=== PATIENT | male | born 1960 | race Two or more races ===

== ENCOUNTER 2020-05-18 11:56 | Inpatient (IN) | payer MEDICAID ==
[~2020-05-18] VITALS: Ht 177.8 cm; Wt 117.0 kg
[2020-05-18] MEDS ORDERED: ACETAMINOPHEN 325MG TABLET ONE (12:30)
[2020-05-18] MEDS ORDERED: ACETAMINOPHEN 325MG TABLET PO ONE (12:30)
[2020-05-18] MEDS ORDERED: SODIUM CHLORIDE 0.9% 1,000 ML IV ONE (12:42)
[2020-05-18 13:27] LABS: HEMATOCRIT. 46.4 % (42.0-52.0); MEAN CORPUSCULAR HEMOGLOBIN 29.9 pg (28.0-32.0); MEAN CORPUSCULAR VOLUME 86.7 fL (80.0-94.0); MEAN PLATELET VOLUME 7.4 fl (7.4-10.4); PLATELET 198 x1000/uL (130-400); RED BLOOD CELL COUNT 5.35 mill/uL (4.7-6.1); RED CELL DISTRIBUTION WIDTH 15.3 % (11.6-14.6)
[2020-05-18 13:38] LABS: CHLORIDE 103 mEq/L (98-107)
[2020-05-18 14:03] LABS: ATYPICAL LYMPHOCYTES 1; PLATELET ESTIMATE NORMAL
[2020-05-18] MEDS ORDERED: AZITHROMYCIN 500 MG in DEXT 5% WATER 250 ML IV SCH (16:00)
[2020-05-18] MEDS ORDERED: ONDANSETRON HCL 4MG/2ML INJ IV PRN (16:15)
[2020-05-18] MEDS ORDERED: ACETAMINOPHEN 325MG TABLET PO PRN (16:15)
[2020-05-18] MEDS ORDERED: CLONIDINE 0.1MG TABLET PO PRN (16:15)
[2020-05-18] MEDS ORDERED: DIPHENHYDRAMINE 50MG/ML VIAL IV PRN (16:15)
[2020-05-18 16:36] LABS: D-DIMER 0.34 mg/L FEU (<0.50)
[2020-05-18 16:52] LABS: PHOSPHORUS 2.6 mg/dL (2.5-4.9)
[2020-05-18] MEDS: ENOXAPARIN 30MG/0.3ML SYR SUBCUT SCH (17:29)
[2020-05-18] MEDS ORDERED: CEFTRIAXONE 1 G PREMIX 50 ML IV SCH (17:30)
[2020-05-18 21:28] VITALS: BP 128/60
[2020-05-18 21:45] VITALS: BP 105/60
[2020-05-18 21:49] VITALS: BP 105/60
[2020-05-18] MEDS ORDERED: SIMV-43 PO (22:00)
[2020-05-18] MEDS ORDERED: LISI2.5T47 PO (22:00)
[2020-05-18] MEDS ORDERED: GLIP10TA10 PO (22:00)
[2020-05-18] MEDS ORDERED: IBUP-2029 PO (22:00)
[2020-05-18] MEDS ORDERED: ASPI-1497 PO (22:00)
[2020-05-18] MEDS ORDERED: DEXTROSE 50% WATER 50ML SYRINGE IV PRN (22:45)
[2020-05-19 00:05] VITALS: BP 98/58
[2020-05-19 04:00] VITALS: BP 95/63
[2020-05-19] MEDS: ENOXAPARIN 30MG/0.3ML SYR SUBCUT SCH ×2 (05:31→18:33)
[2020-05-19] MEDS: BLOOD SUGAR DIAGNOSTIC STRIP TEST SCH ×4 (05:41→20:52)
[2020-05-19 08:00] VITALS: BP 105/65
[2020-05-19] MEDS: INSULIN LISPRO 100 UNITS/ML SUBCUT SCH ×4 (08:02→20:52)
[2020-05-19 10:19] LABS: BASOPHILS % 0.1 % (0.0-2.0); HEMATOCRIT. 45.9 % (42.0-52.0); HEMOGLOBIN. 15.8 g/dL (14.0-18.0); MEAN CORPUSCULAR HEMOGLOBIN 29.8 pg (28.0-32.0); MEAN CORPUSCULAR VOLUME 86.5 fL (80.0-94.0); MEAN PLATELET VOLUME 7.4 fl (7.4-10.4); MONOCYTES % 9.3 % (2.0-8.0); NEUTROPHILS % 69.6 % (40.0-76.0); PLATELET 220 x1000/uL (130-400); RED BLOOD CELL COUNT 5.31 mill/uL (4.7-6.1); RED CELL DISTRIBUTION WIDTH 15.3 % (11.6-14.6)
[2020-05-19 10:24] LABS: CHLORIDE 105 mEq/L (98-107)
[2020-05-19 10:31] LABS: LDL CHOLESTEROL 33 mg/dL (5-100)
[2020-05-19 10:32] LABS: HDL CHOLESTEROL 27 mg/dL (40-59)
[2020-05-19 12:00] VITALS: BP 96/73
[2020-05-19 16:00] VITALS: BP 107/66
[2020-05-19] MEDS: CEFTRIAXONE 1 G PREMIX 50 ML IV SCH (16:21)
[2020-05-19 20:00] VITALS: BP 114/72
[2020-05-20 00:05] VITALS: BP 108/72
[2020-05-20 04:00] VITALS: BP 102/63
[2020-05-20] MEDS: ENOXAPARIN 30MG/0.3ML SYR SUBCUT SCH ×2 (05:41→18:51)
[2020-05-20] MEDS: BLOOD SUGAR DIAGNOSTIC STRIP TEST SCH ×4 (07:40→21:00)
[2020-05-20] MEDS: INSULIN LISPRO 100 UNITS/ML SUBCUT SCH ×4 (07:46→21:00)
[2020-05-20 08:00] VITALS: BP 105/72
[2020-05-20 12:00] VITALS: BP 108/68
[2020-05-20 12:09] LABS: BASOPHILS % 0.1 % (0.0-2.0); EOSINOPHILS % 0.1 % (0.0-5.0); HEMATOCRIT. 43.8 % (42.0-52.0); HEMOGLOBIN. 15.1 g/dL (14.0-18.0); LYMPHOCYTES % 14.1 % (20.0-50.0); MEAN CORPUSCULAR HEMOGLOBIN 29.8 pg (28.0-32.0); MEAN CORPUSCULAR VOLUME 86.3 fL (80.0-94.0); MEAN PLATELET VOLUME 7.4 fl (7.4-10.4); MONOCYTES % 7.4 % (2.0-8.0); NEUTROPHILS % 78.3 % (40.0-76.0); PLATELET 228 x1000/uL (130-400); RED BLOOD CELL COUNT 5.07 mill/uL (4.7-6.1); RED CELL DISTRIBUTION WIDTH 15.3 % (11.6-14.6)
[2020-05-20 12:30] LABS: CHLORIDE 108 mEq/L (98-107)
[2020-05-20 16:00] VITALS: BP 106/75
[2020-05-20] MEDS: CEFTRIAXONE 1 G PREMIX 50 ML IV SCH (16:24)
[2020-05-20 20:00] VITALS: BP 111/70
[2020-05-20] MEDS ORDERED: DEXAMETHASONE 4MG/ML 1ML VIAL IV SCH (21:00)
[2020-05-21] VITALS (7 sets, daily range): BP systolic 91–120; BP diastolic 55–75
[2020-05-21] MEDS: ENOXAPARIN 30MG/0.3ML SYR SUBCUT SCH (05:43)
[2020-05-21] MEDS: BLOOD SUGAR DIAGNOSTIC STRIP TEST SCH ×4 (05:48→20:03)
[2020-05-21 06:13] LABS: BASOPHILS % 0.1 % (0.0-2.0); HEMATOCRIT. 43.9 % (42.0-52.0); HEMOGLOBIN. 15.2 g/dL (14.0-18.0); LYMPHOCYTES % 11.3 % (20.0-50.0); MEAN CORPUSCULAR HEMOGLOBIN 30.2 pg (28.0-32.0); MEAN CORPUSCULAR VOLUME 87.5 fL (80.0-94.0); MEAN PLATELET VOLUME 7.4 fl (7.4-10.4); NEUTROPHILS % 83.6 % (40.0-76.0); PLATELET 246 x1000/uL (130-400); RED BLOOD CELL COUNT 5.02 mill/uL (4.7-6.1); RED CELL DISTRIBUTION WIDTH 15.4 % (11.6-14.6)
[2020-05-21 06:28] LABS: CHLORIDE 108 mEq/L (98-107)
[2020-05-21] MEDS: INSULIN LISPRO 100 UNITS/ML SUBCUT SCH ×4 (08:32→20:46)
[2020-05-21] MEDS ORDERED: DEXAMETHASONE 1MG TABLET PO NR (11:00)
[2020-05-21] MEDS: AZITHROMYCIN 250 MG TABLET PO SCH (11:05)
[2020-05-21] MEDS: ALBUTEROL 6.7GM HFA INHALER ORI SCH ×2 (11:06→17:20)
[2020-05-21] MEDS: CEFTRIAXONE 1 G PREMIX 50 ML IV SCH (15:18)
[2020-05-21 16:47] LABS: INR 1.1; PROTHROMBIN TIME 11.2 sec (9.6-11.0)
[2020-05-21] MEDS: ENOXAPARIN 120MG/0.8ML SYR SUBCUT SCH (17:30)
[2020-05-22 00:35] VITALS: BP 101/77
[2020-05-22] MEDS: ALBUTEROL 6.7GM HFA INHALER ORI SCH ×3 (00:53→11:03)
[2020-05-22 04:00] VITALS: BP 103/67
[2020-05-22] MEDS: ENOXAPARIN 120MG/0.8ML SYR SUBCUT SCH (05:06)
[2020-05-22 06:11] LABS: CHLORIDE 109 mEq/L (98-107)
[2020-05-22] MEDS: BLOOD SUGAR DIAGNOSTIC STRIP TEST SCH ×2 (06:13→12:06)
[2020-05-22 06:27] LABS: HEMATOCRIT. 43.3 % (42.0-52.0); HEMOGLOBIN. 15.1 g/dL (14.0-18.0); MEAN CORPUSCULAR HEMOGLOBIN 30.2 pg (28.0-32.0); MEAN CORPUSCULAR VOLUME 86.8 fL (80.0-94.0); MEAN PLATELET VOLUME 7.5 fl (7.4-10.4); MONOCYTES % 11.1 % (2.0-8.0); NEUTROPHILS % 77.9 % (40.0-76.0); PLATELET 300 x1000/uL (130-400); RED BLOOD CELL COUNT 4.99 mill/uL (4.7-6.1); RED CELL DISTRIBUTION WIDTH 15.2 % (11.6-14.6)
[2020-05-22 08:00] VITALS: BP 98/55
[2020-05-22] MEDS: AZITHROMYCIN 250 MG TABLET PO SCH (08:47)
[2020-05-22] MEDS: INSULIN LISPRO 100 UNITS/ML SUBCUT SCH ×2 (08:51→13:42)
[2020-05-22] MEDS ORDERED: DEXAMETHASONE 4MG TABLET PO SCH (09:00)
[2020-05-22 12:00] VITALS: BP 100/63
[2020-05-22] MEDS ORDERED: AZIT250T12 PO (14:03)
[2020-05-22] MEDS ORDERED: DEX4 PO (14:03)
[2020-05-22 14:29] VITALS: BP 100/63
[2020-05-22 16:00] VITALS: BP 118/76
[2020-05-22] MEDS: CEFTRIAXONE 1 G PREMIX 50 ML IV SCH (16:00)
== END 2020-05-22 19:06 | disposition home or self-care (01) | DRG 720 ==
LOC: ER 11:56 → 7WST 15:55 → EDBEDREQ 15:58 → ENRESERV 19:41
PROVIDERS: ADMIT Internal Medicine; ATTEND Internal Medicine
DX: A41.89 Other specified sepsis (principal); U07.1 COVID-19; J96.00 Acute respiratory failure, unspecified whether with hypoxia or hypercapnia; J12.89 Other viral pneumonia; I10 Essential (primary) hypertension; E11.9 Type 2 diabetes mellitus without complications; E78.00 Pure hypercholesterolemia, unspecified; E78.5 Hyperlipidemia, unspecified; J91.8 Pleural effusion in other conditions classified elsewhere; E66.01 Morbid (severe) obesity due to excess calories; Z79.899 Other long term (current) drug therapy; Z68.37 Body mass index [BMI] 37.0-37.9, adult; Z79.82 Long term (current) use of aspirin
CPT/HCPCS: 36415; 71045; 80048; 80053; 80061; 82550; 82728; 82962; 83036; 83615; 83735; 84100; 84145; 84443; 84484; 85025; 85379; 85384; 86140; 86141; 87635; 93005; 96365; 99285; J0456; J0696; J1100; J1650; J1815; J7030; J7060; J8540